=== PATIENT | female | born 1965 ===

== ENCOUNTER 2017-04-22 11:23 | Inpatient (IN) | payer BC, OTHER ==
[~2017-04-22] VITALS: Ht 172.7 cm; Wt 106.6 kg
[~2017-04-22 11:23] MED LIST: GLYCOPYRROLATE 0.2 MG/ML VIAL MC ONE; METOCLOPRAMIDE HCL 10 MG/2 ML VIAL IV ONE; NEOSTIGMINE METHYLSULFATE 10 MG/10 ML VIAL IV ONE; ONDANSETRON 4 MG/2 ML VIAL IV ONE; PROPOFOL 200 MG/20 ML BOTTLE IV ONE
[2017-04-22] MEDS ORDERED: CEFAZOLIN 50 ML IV ONE (11:55)
[2017-04-22] MEDS ORDERED: LIDOCAINE HCL 1% 20 ML VIAL ONE (12:16)
[2017-04-22] MEDS ORDERED: HYDROMORPHONE 2 MG/1 ML DISP.SYRIN ONE (12:24)
[2017-04-22] MEDS ORDERED: ROCURONIUM BROMIDE 50 MG/5 ML VIAL ONE (12:25)
[2017-04-22] MEDS ORDERED: MIDAZOLAM HCL 2 MG/2 ML VIAL ONE (12:25)
[2017-04-22 12:42] LABS: *URINE HCG, QUAL NEGATIVE (NEGATIVE)
[2017-04-22] MEDS ORDERED: SEVOFLURANE 250 ML BOTTLE ONE (12:53)
[2017-04-22] MEDS ORDERED: HYDROMORPHONE 1 MG/1 ML DISP.SYRIN ONE (14:46)
--- NOTE | 2017-04-22 16:00 | NUR ---
Received patient from OR via [facility]. Patient is alert, in no distress. Patient admitted to tele under the care of Dr. Jose. Dx: S/P MARCELINO/BSO. Patient accompanied by daughter. Dressing on lower abdomen clean/dry/intact. S/P orders taken and noted, endorsed by [employer]. Will notify MD for new admission orders. Safety measures in place. Will continue to monitor.
[2017-04-22] MEDS ORDERED: PROMETHAZINE HCL 25 MG/1 ML VIAL IM PRN (16:15)
[2017-04-22] MEDS ORDERED: HYDROMORPHONE 2 MG/1 ML DISP.SYRIN IV PRN (16:15)
[2017-04-22 16:17] VITALS: BP 100/42
[2017-04-22] MEDS ORDERED: ONDANSETRON 4 MG/2 ML VIAL IV PRN (16:30)
[2017-04-22] MEDS: HYDROMORPHONE 2 MG/1 ML DISP.SYRIN IV PRN ×2 (16:37→23:02)
[2017-04-22] MEDS: IV D5 1/2 NS 1000 ML 1,000 ML IV PRN (16:37)
--- NOTE | 2017-04-22 18:00 | NUR ---
Patient alert, in no distress, no SOB. IVF running, no infiltration noted. Morrow cath intact/patent, draining yellow urine, no c/o of urinary discomfort. Pain management as ordered. Daughter at bedside. Will continue to monitor.
--- NOTE | 2017-04-22 19:20 | NUR ---
Awake during initial rounds. Complaint tolerable pain in scale of 2/10 at this time. Abdominal dressing dry and intact. IVF infusing well . No s/s of infiltration. Continue care as planned.
[2017-04-22 20:44] VITALS: BP 114/54
--- NOTE | 2017-04-22 23:02 | NUR ---
Complaining of lower abdominal incision site, medicated as needed. Will monitor.
[2017-04-23 01:16] VITALS: BP 108/50
[2017-04-23] MEDS: IV D5 1/2 NS 1000 ML 1,000 ML IV PRN (02:36)
[2017-04-23 04:20] VITALS: BP 98/44
--- NOTE | 2017-04-23 06:23 | NUR ---
Slept well. Pain med effective. No further complaint presented. abdominal dressing dry and intact. All needs attended and met. Continue care as planned.
[2017-04-23] MEDS: HYDROMORPHONE 2 MG/1 ML DISP.SYRIN IV PRN (07:49)
--- NOTE | 2017-04-23 08:00 | NUR ---
AWAKE ALERT COOPERATE WELL C/O OF ABD PAIN AND NAUSEA MEDICATION PRN GIVEN ORDER ABD DSG D/I CONTINUE IVF AND F/C INPLACE URINE FLOW WELL CLEAR YELLOW RESTING WELL WITH CALL QUINTANILLA IN REACH
--- NOTE | 2017-04-23 08:45 | NUR ---
RESTING STATE PAIN AND NAUSEA SUBSIDE PO FLD RADHA SMALL AMT
--- NOTE | 2017-04-23 10:00 | NUR ---
ASSIST UP IN CHAIR DEEP BREATH AND COUGHING ENC STILL HAVING NAUSEA AND VOMITTING 50 ML AT THIS TIME
--- NOTE | 2017-04-23 11:00 | NUR ---
DR JOAQUIN HERE AND PT CONDITION INFORM ORDER OK TO D/C F/C AND IV CHANGE TO HL WHEN RADHA PO WELL
[2017-04-23] MEDS ORDERED: FERR325T28 PO (11:03)
[2017-04-23] MEDS ORDERED: CHOL10002 PO (11:03)
--- NOTE | 2017-04-23 11:50 | NUR ---
F/C WAS D/C ORDER ASSIST AMB IN THE [address] DOING WELL AND BACK TO BED DIET ADV TO FULL LIQ FOR LUNCH
[2017-04-23 11:58] VITALS: BP 108/53
--- NOTE | 2017-04-23 13:30 | NUR ---
ASSIST TO BRP VOIDING WELL 400ML POST F/C DISCONTINUE AND UP IN CHAIR NO N/V OR PAIN EAT LUNCH MOD AMT
[2017-04-23 16:16] VITALS: BP 111/53
--- NOTE | 2017-04-23 17:00 | NUR ---
UP IN CHAIR FOR DINNER AND INSTRUCTION TO USE INCENTIVE SPIROMETER RADHA WELL PO FLD RADHA MOD AMT NO N/V AT THIS TIME PAIN UNDER CONTROL SAFETY MEASURE PROVIDED AND CALL LIGHT IN REACH ABD DSG D/I AND HAVE SMALL AMT OF VAG FLOW MULUGETA PAD ON AND MULUGETA CARE SELF
[2017-04-23] MEDS: HYDROCODONE/APAP 5-325MG TABLET PO PRN ×2 (17:46→21:31)
[2017-04-23] MEDS ORDERED: ACETAMINOPHEN 325 MG TABLET PO PRN (18:00)
--- NOTE | 2017-04-23 18:30 | NUR ---
dr montoya was call regarding patient c/o of gas pain and medicsation given as order
[2017-04-23] MEDS ORDERED: BISACODYL 10 MG SUPP.RECT RC PRN (18:45)
[2017-04-23] MEDS: SIMETHICONE 80 MG TAB.CHEW PO PRN (18:55)
--- NOTE | 2017-04-23 19:10 | NUR ---
Appears sleeping during initial rounds. No s/s of pain/discomforts/respiratory distress noted. Continue current plan of care.
--- NOTE | 2017-04-23 20:00 | NUR ---
Temp 100.1, encouraged patient frequent use or every hour use of Incentive spirometer, increased po fluid intake and ambulation as tolerated.
[2017-04-23 21:04] VITALS: BP 94/73
--- NOTE | 2017-04-23 21:32 | NUR ---
Medicated for complaint of lower abdominal pain. Will monitor.
--- NOTE | 2017-04-23 22:35 | NUR ---
Sleeping. No s/s of pain/discomforts noted.
[2017-04-24 00:14] VITALS: BP 110/70
[2017-04-24 04:00] VITALS: BP 115/58
[2017-04-24] MEDS: HYDROCODONE/APAP 5-325MG TABLET PO PRN ×3 (04:57→14:48)
--- NOTE | 2017-04-24 05:58 | NUR ---
Slept in between care. Medicated twice for pain with relief. Seen ambulating in the hallway. Denies any pain. Continue care as planned.
[2017-04-24 06:42] LABS: BASOPHILS % (AUTO) 0.3 % (0.0-2.0); EOSINOPHILS % (AUTO) 0.4 % (0.0-7.0); HEMATOCRIT 35.4 % (31.2-41.9); HEMOGLOBIN 11.7 g/dL (10.9-14.3); LYMPHOCYTES # (AUTO) 2.7 K/uL (20.0-40.0); LYMPHOCYTES % (AUTO) 26.2 % (20.5-51.5); MEAN CORPUSCULAR HEMOGLOBIN 28.7 uug (24.7-32.8); MEAN CORPUSCULAR HGB CONC 33 g/dL (32.3-35.6); MEAN CORPUSCULAR VOLUME 87.1 fL (75.5-95.3); MONOCYTES # (AUTO) 0.8 K/uL (2.0-10.0); MONOCYTES % (AUTO) 7.5 % (0.0-11.0); NEUTROPHILS # (AUTO) 6.7 K/uL (1.8-8.9); NEUTROPHILS % (AUTO) 65.6 % (38.5-71.5); PLATELET COUNT (AUTO) 284 K/uL (179-408); RED BLOOD CELL COUNT(AUTO) 4.07 MIL/uL (3.63-4.92); WHITE BLOOD COUNT (AUTO) 10.3 K/uL (3.8-11.8)
[2017-04-24 06:47] LABS: POTASSIUM 3.5 mmol/L (3.5-5.1)
--- NOTE | 2017-04-24 07:41 | NUR ---
Received client in awake, alert and oriented times 4 and sitting in the chair near by. Client stated she is in no pain. No IV hydration running at this time. No apparent s/s of SOB, distress or discomfort.
[2017-04-24] MEDS: SIMETHICONE 80 MG TAB.CHEW PO PRN (09:05)
--- NOTE | 2017-04-24 09:11 | NUR ---
Client requested something for pain and gas, [place] and [place] given. Also provided the client with towels and wash cloths with personal hygiene products in order for her to wash up. Client was asking if she was going to be discharge.
--- NOTE | 2017-04-24 10:45 | NUR ---
Noted client able to walk to the restroom without assistance and is steady on her feet. Changed dressing to assess operation site is healing without complications. There is no apparent s/s of infection, redness, drainage, or bleeding. Noted with 10 jordan across the surgical incision. An adhesive surgical dressing applied and taped the sides with paper tape. Client is now in bed and resting
--- NOTE | 2017-04-24 10:45 | NUR ---
MD david Craig called at her office but office is closed at this time. Trying to reach because client was to be discharged
[2017-04-24] MEDS ORDERED: HYDROCODONE/APAP 5-325MG TABLET PO PRN (11:00)
[2017-04-24 11:43] VITALS: BP 115/46
--- NOTE | 2017-04-24 11:54 | NUR ---
Client has no post-op urinary catheter at this time. Client has been voiding on her own going to the RR Addendum: 04/24/17 at 1155 by ERNST AYERS RN Amended: Links added.
--- NOTE | 2017-04-24 13:05 | NUR ---
Call placed to Dr Kiara MD gave the okay to discharge client today
[2017-04-24] MEDS ORDERED: PNEUMOCOCCAL 23-VAL P-SAC VAC 0.5 ML VIAL IM ONE (15:00)
--- NOTE | 2017-04-24 15:31 | NUR ---
Client was discharged with orders by MD and OBGYN. Client was guided down to lobby with daughter by her side. picked them up. Client had no apparent s/s of pain, SOB, distress or discomfort. Richards was given before she left and the pneumococcal vaccine as requested by client. Informed client to call and make a follow appointment with her OBGYN. IV line removed intact and ID band removed as well. Discharge paper sign and copies provided for the client.
== END 2017-04-24 15:24 | disposition home or self-care (01) | DRG 743 ==
LOC: DS 11:23 → TELE 15:35 → MED 04-24 11:25
PROVIDERS: ADMIT Obstetrics & Gynecology; ATTEND Internal Medicine
PROC: 0UT90ZZ Resection of Uterus, Open Approach (ICD-10-PCS; principal; 2017-04-22 12:45)
PROC: 0UT20ZZ Resection of Bilateral Ovaries, Open Approach (ICD-10-PCS; principal; 2017-04-22 12:45)
PROC: 0UT70ZZ Resection of Bilateral Fallopian Tubes, Open Approach (ICD-10-PCS; principal; 2017-04-22 12:45)
DX: N93.8 Other specified abnormal uterine and vaginal bleeding (principal); E66.8 Other obesity; D25.9 Leiomyoma of uterus, unspecified; Z68.35 Body mass index [BMI] 35.0-35.9, adult
CPT/HCPCS: 36415; 71045; 84703; 85025; 90732; 93005; A4649; A4663; J0690; J1170; J2250; J2405; J2710; J2765; J3490; J7120